=== PATIENT | male | born 1950 | race Caucasian/White ===

== ENCOUNTER 2021-01-01 12:05 | Emergency (ER) | payer MEDICARE, OTHER ==
--- NOTE | 2021-01-01 12:13 | ED GU-Male ---
General Chief Complaint: Abdominal/GI Problems Stated Complaint: LT FLANK/ABD PAIN History of Present Illness Date Seen by Provider: Jan 01, 2021 Time Seen by Provider: 12:12 Initial Comments 70-year-old male presents with left flank pain is been going on for about a week. Now he has some pain in the left lower quadrant/left groin. He denies any urinary symptoms. Denies any fevers chills nausea or vomiting. He has no other systemic complaints. Allergies and Home Medications Allergies Coded Allergies: No Known Drug Allergies (Unverified , 01/01/21) Home Medications Ondansetron 4 Mg Tab.rapdis, 4 MG PO Q6H PRN for NAUSEA/VOMITING Prescribed by: SO DEE on 01/01/21 1310 Tamsulosin HCl 0.4 Mg Cap, 0.4 MG PO DAILY Prescribed by: SO DEE on 01/01/21 1310 Patient Home Medication List Home Medication List Reviewed: Yes Review of Systems Review of Systems Constitutional: No chills, No fever Respiratory: No cough, No short of breath Cardiovascular: no symptoms reported Musculoskeletal: see HPI Psychiatric/Neurological: No Symptoms Reported Endocrine: No Symptoms Reported Hematologic/Lymphatic: No Symptoms Reported Physical Exam Vital Signs Vital Signs - First Documented 01/01/21 12:13 Temp 35.4 Pulse 62 Resp 16 B/P (MAP) 117/104 (108) Pulse Ox 97 Capillary Refill : Height, Weight, BMI Height: '" Weight: lbs. oz. kg; BMI Method: General Appearance: other (Mild discomfort) HEENT: pharynx normal Cardiovascular: normal peripheral pulses, regular rate, rhythm Respiratory: lungs clear, normal breath sounds Gastrointestinal: non tender, soft Back: CVA tenderness (L) Extremities: non-tender, normal inspection Neurologic/Psychiatric: alert, normal mood/affect, oriented x 3 Progress/Results/Core Measures Suspected Sepsis SIRS Temperature: Pulse: Respiratory Rate: Laboratory Tests 01/01/21 12:23: White Blood Count 6.5 Blood Pressure / Mean: Laboratory Tests 01/01/21 12:23: Creatinine 1.12, Platelet Count 142 Results/Orders Lab Results Laboratory Tests Test 01/01/21 12:22 01/01/21 12:23 Range/Units Urine Color YELLOW Urine Clarity CLEAR Urine pH 5.5 5-9 Urine Specific [place] >=1.030 1.016-1.022 Urine Protein NEGATIVE NEGATIVE Urine Glucose (UA) NEGATIVE NEGATIVE Urine Ketones NEGATIVE NEGATIVE Urine Nitrite NEGATIVE NEGATIVE Urine Bilirubin NEGATIVE NEGATIVE Urine Urobilinogen 0.2 < = 1.0 MG/DL Urine Leukocyte Esterase NEGATIVE NEGATIVE Urine RBC (Auto) 2+ H NEGATIVE Urine RBC 50-100 H /HPF Urine WBC NONE /HPF Urine Squamous Epithelial Cells RARE /HPF Urine Crystals NONE /LPF Urine Bacteria FEW H /HPF Urine Casts PRESENT /LPF Urine Hyaline Casts 0-2 H /LPF Urine Mucus LARGE H /LPF Urine Culture Indicated NO White Blood Count 6.5 4.3-11.0 10^3/uL Red Blood Count 5.25 4.35-5.85 10^6/uL Hemoglobin 15.9 13.3-17.7 G/DL Hematocrit 45 40-54 % Mean Corpuscular Volume 87 80-99 FL Mean Corpuscular Hemoglobin 30 25-34 PG Mean Corpuscular Hemoglobin Concent 35 32-36 G/DL Red Cell Distribution Width 13.2 10.0-14.5 % Platelet Count 142 130-400 10^3/uL Mean Platelet Volume 11.7 H 7.4-10.4 FL Immature Granulocyte % (Auto) 1 % Neutrophils (%) (Auto) 57 42-75 % Lymphocytes (%) (Auto) 32 12-44 % Monocytes (%) (Auto) 7 0-12 % Eosinophils (%) (Auto) 4 0-10 % Basophils (%) (Auto) 1 0-10 % Neutrophils # (Auto) 3.7 1.8-7.8 X 10^3 Lymphocytes # (Auto) 2.1 1.0-4.0 X 10^3 Monocytes # (Auto) 0.5 0.0-1.0 X 10^3 Eosinophils # (Auto) 0.2 0.0-0.3 10^3/uL Basophils # (Auto) 0.4 H 0.0-0.1 10^3/uL Immature Granulocyte # (Auto) 0.0 0.0-0.1 10^3/uL Sodium Level 141 135-145 MMOL/L Potassium Level 4.0 3.6-5.0 MMOL/L Chloride Level 104 98-107 MMOL/L Carbon Dioxide Level 28 21-32 MMOL/L Anion Gap 9 5-14 MMOL/L Blood Urea Nitrogen 22 H 7-18 MG/DL Creatinine 1.12 0.60-1.30 MG/DL Estimat Glomerular Filtration Rate > 60 BUN/Creatinine Ratio 20 Glucose Level 103 70-105 MG/DL Calcium Level 9.4 8.5-10.1 MG/DL My Orders Orders - SO DEE DO Basic Metabolic Panel (01/01/21 12:17) Cbc With Automated Diff (01/01/21 12:17) Ua Culture If Indicated (01/01/21 12:17) Ct Abdomen/Pelvis Wo (01/01/21 12:17) Ed Iv/Invasive Line Start (01/01/21 12:17) Ketorolac Injection (Toradol Injection) (01/01/21 12:17) Vital Signs/I&O 01/01/21 01/01/21 12:13 13:19 Temp 35.4 Pulse 62 57 Resp 16 16 B/P (MAP) 117/104 (108) 153/95 Pulse Ox 97 94 Capillary Refill : Progress Note : Progress Note Patient with kidney stone along with bladder stone. Discussed findings with patient. Patient will need to follow-up with his urologist next week. Given tamsulosin along with Zofran. Patient has pain medication at home. Patient stable and discharged home Diagnostic Imaging Diagonstic Imaging: CT Plain Films/CT/US/NM/MRI: abdomen Comments ate of Exam:01/01/21 CT ABDOMEN/PELVIS WO PROCEDURE: CT abdomen and pelvis without contrast. TECHNIQUE: Multiple contiguous axial images were obtained through the abdomen and pelvis without the use of intravenous contrast. Auto Exposure Controls were utilized during the CT exam to meet ALARA standards for radiation dose reduction. INDICATION: Left flank pain, kidney stone. There are no prior studies available for comparison. The images through the low pelvis show that there is a small 3.4 mm calculus at the ureterovesicular junction on the left (129 of 161). The left ureter and left renal pelvis are slightly dilated and most likely there is partial obstruction of the left collecting system due to the aforementioned calculus. There is also a lobulated 1.9 cm calcification in the base of the bladder near the ureterovesical junction on the left. This is probably secondary to a bladder calculus. The bladder itself is not well distended and consequently difficult to assess. There is also a 5.6 and a nonobstructive calculus within the right kidney. In addition along this inferior pole of the right kidney there is a sizable 4.7 cm rounded area of low density. I suspect this is a cyst. There also appear to be several small cysts in the right lobe of the liver. The spleen, pancreas, adrenals, gallbladder, aorta and inferior vena cava show no sign of an acute abnormality. The stomach is partially filled with fluid and difficult to assess. The appendix was visualized and is not abnormally thickened. There is diverticulosis sigmoid colon but there is no sign of acute diverticulitis. The prostate gland is mildly enlarged. The lung bases are generally clear. IMPRESSION: 1. There is partial obstruction left collecting system due to a 3.4 mm calculus at the ureterovesical junction. 2. There also appears to be a 1.9 cm bladder calcification and a 5.6 mm nonobstructive calculus within the right kidney. 3. There is no acute abnormality abdomen and pelvis noted otherwise. Reviewed: Reviewed by Me, Reviewed/Discussed Departure Impression Primary Impression: Calculus of left ureter Disposition: HOME, SELF-CARE Condition: Stable Departure-Patient Inst. Referrals: DEANNA VARGAS MD (PCP/Family) Primary Care Physician Patient Instructions: How to Strain Your Urine, Kidney Stone Diet, Kidney Stones in Adults Add. Discharge Instructions: Call your urologist Sunday morning for follow-up next week Drink plenty of fluid All discharge instructions reviewed with patient and/or family. Voiced understanding. Scripts Tamsulosin HCl (Flomax) 0.4 Mg Cap 0.4 MG PO DAILY, #20 CAP Prov: SO DEE DO 01/01/21 Ondansetron (Ondansetron Odt) 4 Mg Tab.rapdis 4 MG PO Q6H PRN for NAUSEA/VOMITING, #20 TAB 0 Refills Prov: SO DEE DO 01/01/21 SO DEE DO Jan 01, 2021 12:13
[2021-01-01] MEDS ORDERED: KETOROLAC 30 MG/ML VIAL IVP STA (12:17)
[2021-01-01 12:31] LABS: HEMATOCRIT 45 % (40-54); HEMOGLOBIN 15.9 G/DL (13.3-17.7); MEAN CORPUSCULAR HEMOGLOBIN 30 PG (25-34); MEAN CORPUSCULAR VOLUME 87 FL (80-99); WHITE BLOOD COUNT 6.5 10^3/uL (4.3-11.0)
[2021-01-01 12:32] LABS: BASOPHILS # (AUTO) 0.4 10^3/uL (0.0-0.1); BASOPHILS % (AUTO) 1 % (0-10); EOSINOPHILS # (AUTO) 0.2 10^3/uL (0.0-0.3); EOSINOPHILS % (AUTO) 4 % (0-10); LYMPHOCYTES # (AUTO) 2.1 X 10^3 (1.0-4.0); LYMPHOCYTES % (AUTO) 32 % (12-44); MEAN CORPUSCULAR HGB CONC 35 G/DL (32-36); MEAN PLATELET VOLUME 11.7 FL (7.4-10.4); MONOCYTES # (AUTO) 0.5 X 10^3 (0.0-1.0); MONOCYTES % (AUTO) 7 % (0-12); NEUTROPHILS # (AUTO) 3.7 X 10^3 (1.8-7.8); NEUTROPHILS % (AUTO) 57 % (42-75); PLATELET COUNT 142 10^3/uL (130-400)
[2021-01-01 12:33] LABS: BACTERIA,URINE FEW /HPF; BILIRUBIN,URINE NEGATIVE (NEGATIVE); CLARITY,URINE CLEAR; COLOR,URINE YELLOW; GLUCOSE, URINE (UA) NEGATIVE (NEGATIVE); HYALINE CASTS, URINE 0-2 /LPF; KETONES,URINE NEGATIVE (NEGATIVE); LEUKOCYTE ESTERASE ,URINE NEGATIVE (NEGATIVE); NITRITE,URINE NEGATIVE (NEGATIVE); PH,URINE 5.5 (5-9); PROTEIN,URINE NEGATIVE (NEGATIVE); RBC,URINE 50-100 /HPF; SQUAMOUS EPITHELIAL CELL,UR RARE /HPF
[2021-01-01 12:49] LABS: BUN/CREATININE RATIO 20; CALCIUM 9.4 MG/DL (8.5-10.1); CARBON DIOXIDE 28 MMOL/L (21-32); CHLORIDE 104 MMOL/L (98-107); CREATININE SERUM 1.12 MG/DL (0.60-1.30); GFR ESTIMATED > 60; GLUCOSE 103 MG/DL (70-105); SODIUM 141 MMOL/L (135-145)
[2021-01-01] MEDS ORDERED: TMSL.4C PO (13:10)
[2021-01-01] MEDS ORDERED: ONDA4TAB11 PO (13:10)
[2021-01-01 13:19] VITALS: BP 153/95
--- NOTE | 2021-01-01 13:29 | Diagnostic Imaging Report ---
PROCEDURE: CT abdomen and pelvis without contrast. TECHNIQUE: Multiple contiguous axial images were obtained through the abdomen and pelvis without the use of intravenous contrast. Auto Exposure Controls were utilized during the CT exam to meet ALARA standards for radiation dose reduction. INDICATION: Left flank pain, kidney stone. There are no prior studies available for comparison. The images through the low pelvis show that there is a small 3.4 mm calculus at the ureterovesicular junction on the left (129 of 161). The left ureter and left renal pelvis are slightly dilated and most likely there is partial obstruction of the left collecting system due to the aforementioned calculus. There is also a lobulated 1.9 cm calcification in the base of the bladder near the ureterovesical junction on the left. This is probably secondary to a bladder calculus. The bladder itself is not well distended and consequently difficult to assess. There is also a 5.6 and a nonobstructive calculus within the right kidney. In addition along this inferior pole of the right kidney there is a sizable 4.7 cm rounded area of low density. I suspect this is a cyst. There also appear to be several small cysts in the right lobe of the liver. The spleen, pancreas, adrenals, gallbladder, aorta and inferior vena cava show no sign of an acute abnormality. The stomach is partially filled with fluid and difficult to assess. The appendix was visualized and is not abnormally thickened. There is diverticulosis sigmoid colon but there is no sign of acute diverticulitis. The prostate gland is mildly enlarged. The lung bases are generally clear. IMPRESSION: 1. There is partial obstruction of the left collecting system due to a 3.4 mm calculus at the ureterovesical junction. 2. There also appears to be a 1.9 cm bladder calcification and a 5.6 mm nonobstructive calculus within the right kidney. 3. There is no acute abnormality abdomen and pelvis noted otherwise. Dictated by: Dictated on workstation # [id number]
== END 2021-01-01 13:19 | disposition home or self-care (01) ==
LOC: ER FS 12:08
DX: N20.1 Calculus of ureter (principal); N20.0 Calculus of kidney
CPT/HCPCS: 36415; 74176; 80048; 81000; 85025

== ENCOUNTER 2021-05-03 18:37 | Emergency (ER) | payer MEDICARE, OTHER ==
[~2021-05-03] VITALS: Ht 187.9 cm; Wt 101.4 kg
[~2021-05-03 18:37] MED LIST: ONDA4TAB11 PO; TMSL.4C PO
[2021-05-03] MEDS ORDERED: ONDANSETRON 4 MG/2 ML (SDV) Z0FRAN IVP ONE ×2 (19:00→21:15)
[2021-05-03] MEDS ORDERED: fentaNYL INJ 100 MCG/2 ML AMP IVP ONE (19:00)
[2021-05-03] MEDS ORDERED: NS IV 1000 ML 1,000 ML IV SCH (19:00)
--- NOTE | 2021-05-03 19:15 | Diagnostic Imaging Report ---
PROCEDURE: CT abdomen and pelvis without contrast. TECHNIQUE: Multiple contiguous axial images were obtained through the abdomen and pelvis without the use of intravenous contrast. Auto Exposure Controls were utilized during the CT exam to meet ALARA standards for radiation dose reduction. INDICATION: Right flank pain. Patient has history of kidney stones. COMPARISON: Correlation is made with prior CT from 01/01/2021. FINDINGS: Lung bases are clear. Low-attenuation lesions in the right lobe of the liver are stable and suggestive of cysts. Gallbladder is unremarkable. There is no biliary ductal dilatation. The pancreas and spleen are unremarkable. No adrenal mass is detected. Left kidney is unremarkable. Right kidney contains a 5.3 cm low-attenuation lesion in the lower pole, most suggestive of a cyst. This measured 4.7 cm on prior exam. Previously noted intrarenal calculus on the right now appears to be located in the proximal right ureter. This measures 7 mm in size and is producing moderate hydroureteronephrosis. No other ureteral calculi are seen. The large bladder calculus previously described remains in place. Prostate is enlarged. Aorta is calcified and tortuous but nonaneurysmal. Bowel loops are nonobstructed. There is diverticulosis of the sigmoid but no evidence of acute diverticulitis. There is no free fluid or fluid collection. There are fat-containing inguinal hernias bilaterally. IMPRESSION: 1. Hepatic and renal cysts. 2. Proximal right ureteric calculus producing moderate hydroureteronephrosis. 3. Bladder calculus. 4. Prostatomegaly. 5. Fat-containing inguinal hernias. Dictated by: Dictated on workstation # [id number]
[2021-05-03 19:27] LABS: HEMATOCRIT 43 % (40-54); HEMOGLOBIN 14.3 g/dL (13.3-17.7); MEAN CORPUSCULAR HEMOGLOBIN 29 pg (25-34); MEAN CORPUSCULAR HGB CONC 34 g/dL (32-36); MEAN CORPUSCULAR VOLUME 85 fL (80-99); MEAN PLATELET VOLUME 11.2 fL (9.0-12.2); PLATELET COUNT 163 10^3/uL (130-400); WHITE BLOOD COUNT 10.7 10^3/uL (4.3-11.0)
[2021-05-03 19:28] LABS: BASOPHILS % (AUTO) 0 % (0-10); EOSINOPHILS # (AUTO) 0.1 10^3/uL (0.0-0.3); EOSINOPHILS % (AUTO) 1 % (0-10); LYMPHOCYTES # (AUTO) 1.2 X 10^3 (1.0-4.0); LYMPHOCYTES % (AUTO) 11 % (12-44); MONOCYTES # (AUTO) 0.8 X 10^3 (0.0-1.0); MONOCYTES % (AUTO) 8 % (0-12); NEUTROPHILS # (AUTO) 8.6 X 10^3 (1.8-7.8); NEUTROPHILS % (AUTO) 80 % (42-75)
[2021-05-03 19:29] LABS: ALBUMIN 3.7 GM/DL (3.2-4.5); BILIRUBIN,TOTAL 0.6 MG/DL (0.1-1.0); CALCIUM 9.5 MG/DL (8.5-10.1); CREATININE SERUM 1.55 MG/DL (0.60-1.30); POTASSIUM 4.1 MMOL/L (3.6-5.0); TOTAL PROTEIN 7.3 GM/DL (6.4-8.2)
[2021-05-03 19:58] LABS: BACTERIA,URINE NEGATIVE /HPF; BILIRUBIN,URINE NEGATIVE (NEGATIVE); CLARITY,URINE SL CLOUDY; COLOR,URINE DARK YELLOW; GLUCOSE, URINE (UA) NEGATIVE (NEGATIVE); KETONES,URINE 1+ (NEGATIVE); LEUKOCYTE ESTERASE ,URINE NEGATIVE (NEGATIVE); NITRITE,URINE NEGATIVE (NEGATIVE); PH,URINE 5.5 (5-9); PROTEIN,URINE 1+ (NEGATIVE); RBC,URINE 25-50 /HPF
--- NOTE | 2021-05-03 21:03 | ED Abdominal Pain ---
General Chief Complaint: Abdominal/GI Problems Stated Complaint: LOWER BACK/ABD PAIN Nursing Triage Note: Patient stated that he was diagnosed with kidney stones several years ago. He states it was recommended that he have surgery and he declined. Patient is complaining of bilateral flank pain that radiates to his abdomen. Patient states that he does have some slight nausea. Source of Information: Patient, Family History of Present Illness Date Seen by Provider: May 03, 2021 Time Seen by Provider: 19:30 Initial Comments Patient is a 70-year-old male with history of renal stones who presents with intermittent right flank pain x3 days pain is described as dull radiating and moderate to severe. Is associate with nausea without vomiting. No fever chills or sweats. No urinary frequency urgency dysuria. No other acute symptoms or co mplaints. No medications or therapies prior to ED arrival Timing/Duration: 3-4 Days Severity/Quality: Other Location: Other Radiation: Other Activities at Onset: Other Modifying Factors: Improves With Other Associated Symptoms: Other Allergies and Home Medications Allergies Coded Allergies: No Known Drug Allergies (Unverified , 01/01/21) Patient Home Medication List Home Medication List Reviewed: Yes Ondansetron (Ondansetron Odt) 4 Mg Tab.rapdis, 4 MG PO Q6H PRN for NAUSEA/VOMITING Prescribed by: SO DEE on 01/01/21 1310 Tamsulosin HCl (Flomax) 0.4 Mg Cap, 0.4 MG PO DAILY Prescribed by: SO DEE on 01/01/21 1310 Review of Systems Review of Systems Constitutional: see HPI EENTM: See HPI Respiratory: See HPI Gastrointestinal: See HPI Genitourinary: See HPI Musculoskeletal: see HPI Skin: see HPI Psychiatric/Neurological: See HPI Endocrine: See HPI Hematologic/Lymphatic: See HPI All Other Systems Reviewed Negative Unless Noted: Yes Past Ylhfyre-Dwducm-Djjnai Hx Patient Social History Tobacco Use?: Yes Use of E-Cig and/or Vaping dev: No Substance use?: No Alcohol Use?: No Immunizations Up To Date COVID19 Vaccine [employer] Developer: [employer] Past Medical History Surgery/Hospitalization HX: Kidney Stones Physical Exam Vital Signs Vital Signs - First Documented 05/03/21 18:42 Temp 36.1 Pulse 75 Resp 14 B/P (MAP) 156/91 (112) Pulse Ox 94 O2 Delivery Room Air Capillary Refill : Less Than 3 Seconds Height/Weight/BMI Height: '" Weight: lbs. oz. kg; 28.00 BMI Method: General Appearance: moderate distress HEENT: PERRL/EOMI, normal ENT inspection Neck: non-tender, full range of motion, supple Respiratory: lungs clear Cardiovascular: normal peripheral pulses, regular rate, rhythm Gastrointestinal: non tender, soft Extremities: normal range of motion, non-tender, no calf tenderness Neurologic/Psychiatric: curbing stonecutter II-XII nml as tested, no motor/sensory deficits, alert, normal mood/affect, oriented x 3 Focused Exam Sepsis Stage: Ruled Out Progress/Results/Core Measures Results/Orders Lab Results Laboratory Tests Test 05/03/21 18:53 05/03/21 19:44 Range/Units White Blood Count 10.7 4.3-11.0 10^3/uL Red Blood Count 5.01 4.30-5.52 10^6/uL Hemoglobin 14.3 13.3-17.7 g/dL Hematocrit 43 40-54 % Mean Corpuscular Volume 85 80-99 fL Mean Corpuscular Hemoglobin 29 25-34 pg Mean Corpuscular Hemoglobin Concent 34 32-36 g/dL Red Cell Distribution Width 13.2 10.0-14.5 % Platelet Count 163 130-400 10^3/uL Mean Platelet Volume 11.2 9.0-12.2 fL Immature Granulocyte % (Auto) 0 % Neutrophils (%) (Auto) 80 H 42-75 % Lymphocytes (%) (Auto) 11 L 12-44 % Monocytes (%) (Auto) 8 0-12 % Eosinophils (%) (Auto) 1 0-10 % Basophils (%) (Auto) 0 0-10 % Neutrophils # (Auto) 8.6 H 1.8-7.8 X 10^3 Lymphocytes # (Auto) 1.2 1.0-4.0 X 10^3 Monocytes # (Auto) 0.8 0.0-1.0 X 10^3 Eosinophils # (Auto) 0.1 0.0-0.3 10^3/uL Basophils # (Auto) 0.0 0.0-0.1 10^3/uL Immature Granulocyte # (Auto) 0.0 0.0-0.1 10^3/uL Sodium Level 137 135-145 MMOL/L Potassium Level 4.1 3.6-5.0 MMOL/L Chloride Level 102 98-107 MMOL/L Carbon Dioxide Level 23 21-32 MMOL/L Anion Gap 12 5-14 MMOL/L Blood Urea Nitrogen 25 H 7-18 MG/DL Creatinine 1.55 H 0.60-1.30 MG/DL Estimat Glomerular Filtration Rate 44 BUN/Creatinine Ratio 16 Glucose Level 168 H 70-105 MG/DL Calcium Level 9.5 8.5-10.1 MG/DL Corrected Calcium 9.7 8.5-10.1 MG/DL Total Bilirubin 0.6 0.1-1.0 MG/DL Aspartate Amino Transf (AST/SGOT) 15 5-34 U/L Alanine Aminotransferase (ALT/SGPT) 9 0-55 U/L Alkaline Phosphatase 68 40-136 U/L Total Protein 7.3 6.4-8.2 GM/DL Albumin 3.7 3.2-4.5 GM/DL Urine Color DARK YELLOW Urine Clarity SL CLOUDY Urine pH 5.5 5-9 Urine Specific [place] >=1.030 1.016-1.022 Urine Protein 1+ H NEGATIVE Urine Glucose (UA) NEGATIVE NEGATIVE Urine Ketones 1+ H NEGATIVE Urine Nitrite NEGATIVE NEGATIVE Urine Bilirubin NEGATIVE NEGATIVE Urine Urobilinogen 0.2 < = 1.0 MG/DL Urine Leukocyte Esterase NEGATIVE NEGATIVE Urine RBC (Auto) 1+ H NEGATIVE Urine RBC 25-50 H /HPF Urine WBC 2-5 /HPF Urine Squamous Epithelial Cells 2-5 /HPF Urine Crystals NONE /LPF Urine Bacteria NEGATIVE /HPF Urine Casts NONE /LPF Urine Mucus MODERATE H /LPF Urine Culture Indicated NO My Orders Orders - LOREN SNOW DO Cbc With Automated Diff (05/03/21 18:53) Comprehensive Metabolic Panel (05/03/21 18:53) Urinalysis (05/03/21 18:53) Ct Abdomen/Pelvis Wo (05/03/21 18:53) Fentanyl Inj (Sublimaze Injection) (05/03/21 19:00) Ondansetron Injection (Zofran Injectio (05/03/21 19:00) Ns Iv 1000 Ml (Sodium Chloride 0.9%) (05/03/21 19:00) Ed Iv/Invasive Line Start (05/03/21 19:40) Medications Given in ED Current Medications Medications Dose Ordered Sig/Iris Route Start Time Stop Time Status Last Admin Dose Admin Fentanyl Citrate 50 mcg ONCE ONCE IVP 05/03/21 19:00 05/03/21 19:01 DC 05/03/21 19:25 50 MCG Ondansetron HCl 4 mg ONCE ONCE IVP 05/03/21 19:00 05/03/21 19:01 DC 05/03/21 19:25 4 MG Vital Signs/I&O 05/03/21 18:42 Temp 36.1 Pulse 75 Resp 14 B/P (MAP) 156/91 (112) Pulse Ox 94 O2 Delivery Room Air Blood Pressure Mean: 112 Departure Communication (Admissions) CT abdomen pelvis: Right proximal ureteral stone with moderate hydronephrosis. Pain improvement treatment. Patient instructed to follow-up with his urologist tomorrow to arrange for outpatient lithotripsy. Return cautions reviewed. Patient verbalizes understanding agreement with discharge instructions prior to departure Impression Primary Impression: Acute right flank pain Additional Impression: Ureteral stone Disposition: HOME, SELF-CARE Condition: Stable Departure-Patient Inst. Decision time for Depature: 21:04 Referrals: DEANNA VARGAS MD (PCP) Primary Care Physician KATHLEEN JAY MD Patient Instructions: Flank Pain, Kidney Stones in Adults Add. Discharge Instructions: You were evaluated in the emergency department for flank pain. CT scan shows a 7 mm proximal right ureteral stone causing moderate right kidney urine retention. Please take pain and nausea medications as directed and contact your urologist in the morning to schedule outpatient lithotripsy. You may also call Dr. Jay on-call for urology for [facility]. If you develop new or worsening symptoms, return to the ED. All discharge instructions reviewed with patient and/or family. Voiced understanding. Scripts Ondansetron (Ondansetron Odt) 4 Mg Tab.rapdis 4 MG PO q6, #10 TAB Prov: LOREN SNOW DO 05/03/21 Oxycodone HCl/Acetaminophen (Percocet 5-325 mg Tablet) 1 Each Tablet 1 TAB PO Q4H for PAIN-MODERATE MDD 6 TABS for 7 Days, #14 TAB Prov: LOREN SNOW DO 05/03/21 LOREN SNOW DO May 03, 2021 21:03
[2021-05-03] MEDS ORDERED: ONDA4TAB11 PO (21:08)
[2021-05-03] MEDS ORDERED: OXYC1TAB87 PO (21:08)
[2021-05-03] MEDS ORDERED: morphine INJ 10 MG/ML 1ML (SYR OR VIAL) IVP STA (21:11)
[2021-05-03] MEDS ORDERED: KETOROLAC 30 MG/ML VIAL IVP ONE (21:15)
[2021-05-03 21:27] VITALS: BP 127/77
== END 2021-05-03 21:27 | disposition home or self-care (01) ==
LOC: EDUNIT# 18:37 → ER FS 18:38
DX: N13.2 Hydronephrosis with renal and ureteral calculous obstruction (principal); Z72.0 Tobacco use
CPT/HCPCS: 36415; 74176; 80053; 81000; 85025

== ENCOUNTER → 2021-05-09 | Outpatient (CLI) | payer MEDICARE, OTHER ==
[~2021-05-09] MED LIST changes: +ASPI-808 PO; +ATOR20TA66 PO; +BISO10TA6 PO; +DUTA0.5C36 PO; +GLIM4TAB5 PO; +ISOS30TA82 PO; +KETO10TA PO; +LISI20TA26 PO; +METF-399 PO; +MULTI VITAMIN PO; +OMEGA 3 PO; +OXYC1TAB87 PO; +PHEN-640 PO; +SULF1TAB38 PO; +VITAMIN C PO
--- NOTE | 2021-05-09 14:01 | Diagnostic Imaging Report ---
INDICATION: Followup calculi. COMPARISON: CT of the abdomen dated 05/03/2021. FINDINGS: Two supine radiographic views of the abdomen were obtained and demonstrate nondistended loops of small bowel. There is no large collection of free peritoneal air. Moderate air and stool are seen scattered throughout the colon. A star-shaped extraosseous calcification is identified overlying the lower right hemipelvis and is felt to correspond to the large bladder calculus seen on the prior CT. No other unexpected extraosseous calcifications or radiopaque foreign bodies are identified. Bony structures show no gross acute abnormalities. IMPRESSION: 1. Redemonstration of a large bladder calculus.. 2. Moderate colonic air and stool. Please correlate for constipation. 3. Nonobstructed small bowel gas pattern. Dictated by: Dictated on workstation # [id number]
== END ==
LOC: RAD 12:33
PROVIDERS: ATTEND Urology
DX: N21.0 Calculus in bladder (principal); N20.1 Calculus of ureter
CPT/HCPCS: 74018

== ENCOUNTER 2021-05-10 06:09 | Outpatient (CLI) | payer MEDICARE, OTHER ==
[~2021-05-10] VITALS: Ht 188 cm; Wt 100.0 kg
[~2021-05-10 06:09] MED LIST changes: -ASPI-808 PO; -ATOR20TA66 PO; -BISO10TA6 PO; -DUTA0.5C36 PO; -GLIM4TAB5 PO; -ISOS30TA82 PO; -KETO10TA PO; -LISI20TA26 PO; -METF-399 PO; -MULTI VITAMIN PO; -OMEGA 3 PO; -PHEN-640 PO; -SULF1TAB38 PO; -VITAMIN C PO
[2021-05-10] MEDS ORDERED: BISO10TA6 PO (13:00)
[2021-05-10] MEDS ORDERED: ISOS30TA82 PO (13:00)
[2021-05-10] MEDS ORDERED: GLIM4TAB5 PO (13:00)
[2021-05-10] MEDS ORDERED: ATOR20TA66 PO (13:00)
[2021-05-10] MEDS ORDERED: LISI20TA26 PO (13:00)
[2021-05-10] MEDS ORDERED: METF-399 PO (13:00)
[2021-05-10] MEDS ORDERED: DUTA0.5C36 PO (13:00)
[2021-05-10] MEDS ORDERED: OMEGA 3 PO (13:02)
[2021-05-10] MEDS ORDERED: MULTI VITAMIN PO (13:02)
[2021-05-10] MEDS ORDERED: VITAMIN C PO (13:02)
[2021-05-10] MEDS ORDERED: ASPI-808 PO (13:02)
[2021-05-11] MEDS ORDERED: PHEN-640 PO (10:38)
[2021-05-11] MEDS ORDERED: KETO10TA PO (10:38)
[2021-05-11] MEDS ORDERED: SULF1TAB38 PO (10:38)
== END 2021-05-10 13:24 | disposition home or self-care (01) ==
LOC: PREOP 06:09
PROVIDERS: ATTEND Urology
DX: Z01.818 Encounter for other preprocedural examination (principal)

== ENCOUNTER 2021-05-11 07:00 | Day surgery (SDC) | payer MEDICARE, OTHER ==
[2021-05-11] VITALS (11 sets, daily range): BP systolic 132–166; BP diastolic 82–102
[~2021-05-11] VITALS: Ht 188 cm; Wt 100.0 kg
[~2021-05-11 07:00] MED LIST changes: +ASPI-808 PO; +ATOR20TA66 PO; +BISO10TA6 PO; +DUTA0.5C36 PO; +GLIM4TAB5 PO; +ISOS30TA82 PO; +LISI20TA26 PO; +METF-399 PO; +MULTI VITAMIN PO; +OMEGA 3 PO; +VITAMIN C PO
[2021-05-11] MEDS ORDERED: cefTRIAXone 1,000 MG in SYRINGE-IVPB 0 SYRINGE IV ONE (07:15)
--- NOTE | 2021-05-11 07:23 | Progress Note-Pre Operative ---
Pre-Operative Progress Note H&P Reviewed The H&P was reviewed, patient examined and no changes noted. Date Seen by Provider: May 11, 2021 Time Seen by Provider: 07:22 Date H&P Reviewed: May 11, 2021 Time H&P Reviewed: 07:22 Pre-Operative Diagnosis: RT URETERAL AND BLADDER STONES KATHLEEN JAY MD May 11, 2021 07:23
[2021-05-11] MEDS ORDERED: cefTRIAXone 1 GM IV (PRE-MIX) 50 ML IV ONE (07:30)
--- NOTE | 2021-05-11 07:31 | Progress Note-Post Operative ---
Post-Operative Progess Note Surgeon (s)/Sales Intern (s) Surgeon KATHLEEN JAY MD Sales Intern: NONE Pre-Operative Diagnosis RT URETERAL AND BLADDER STONES Post-Operative Diagnosis SAME Procedure & Operative Findings Date of Procedure 05/11/21 Procedure Performed/Findings CYSTOSCOPY, RT URETERAL STONE MANIPULATION, ATTEMPTED STENT, ATTEMPTED URETEROSC OPY, AND RETROGRADE UROGRAM Anesthesia Type GENERAL Estimated Blood Loss Estimated blood loss (mL): LESS THAN 50CC Specimens/Packing Specimens Removed NONE Packing: NONE KATHLEEN JAY MD May 11, 2021 07:31
--- NOTE | 2021-05-11 07:33 | Discharge Inst-Urology ---
Discharge Inst-Urology Reconcile Patient Problems Problems Reviewed?: Yes Final Diagnosis RT URETERAL AND BLADDER STONES Patient Instructions/Follow Up Plan/Assessment/Instructions Please make appointment to been seen in office Wednesday 05/23, KUB prior to it KUB on way home STAY OFF ASA Increase oral fluids for 48 hours and then as needed. Diet and Activity as tolerated. If questions or concerns contact your physician Or seek help at emergency department. KATHLEEN JAY MD May 11, 2021 07:33
--- NOTE | 2021-05-11 07:39 | Diagnostic Imaging Report ---
Indication: Kidney stone. Comparison with 05/09/2021. FINDINGS: There continues to be a large faceted bladder stone. No calculi are seen overlying the renal shadows or the ureters. Bowel gas pattern is normal. Diffuse degenerative changes of the lumbosacral spine. IMPRESSION: Bladder stone remains present without significant change in appearance. Dictated by: Dictated on workstation # [id number]
[2021-05-11] MEDS: LACTATED RINGERS 1,000 ML IV PRN ×2 (07:40→09:50)
[2021-05-11] MEDS ORDERED: LIDOCAINE PF 2% 5 ML (XYLOCAINE) VIAL ONE (08:28)
[2021-05-11] MEDS ORDERED: ROCURONIUM 10 MG/ML 5 ML SYRINGE IV ONE (08:28)
[2021-05-11] MEDS ORDERED: NEOSTIGMINE 3 MG/3 ML VIAL ONE (08:28)
[2021-05-11] MEDS ORDERED: ONDANSETRON 4 MG/2 ML (SDV) Z0FRAN ONE (08:28)
[2021-05-11] MEDS ORDERED: fentaNYL INJ 100 MCG/2 ML AMP ONE (08:28)
[2021-05-11] MEDS ORDERED: proPOfol 200 MG/20 ML (DIPRIVAN) VIAL IV ONE (08:28)
[2021-05-11] MEDS ORDERED: GLYCOPYRROLATE 0.2 MG/ML (ROBINUL) 2 ML VIAL ONE (08:28)
[2021-05-11] MEDS ORDERED: IOHEXOL 300 MG/ML 30 ML (OMNIPAQUE 300) VIAL INJ ONE (09:45)
[2021-05-11] MEDS ORDERED: SEVOFLURANE (ULTANE) 15 ML INHAL SOLN ONE (10:06)
[2021-05-11] MEDS ORDERED: ONDANSETRON 4 MG/2 ML (SDV) Z0FRAN IVP PRN (10:30)
[2021-05-11] MEDS ORDERED: morphine INJ 10 MG/ML 1ML (SYR OR VIAL) IVP ONE (10:30)
[2021-05-11] MEDS ORDERED: PHEN-640 PO ×2 (10:38)
[2021-05-11] MEDS ORDERED: KETO10TA PO ×2 (10:38)
[2021-05-11] MEDS ORDERED: SULF1TAB38 PO ×2 (10:38)
[2021-05-11] MEDS ORDERED: oxyCODONE/APAP 5/325MG (PERCOCET 5) TABLET PO ONE (12:15)
[2021-05-11] MEDS ORDERED: oxyCODONE/APAP 5/325MG (PERCOCET 5) TABLET ONE (12:16)
--- NOTE | 2021-05-11 12:23 | Anesthesia-General Post-Op ---
General Patient Condition Mental Status/LOC: Same as Preop Cardiovascular: Satisfactory Nausea/Vomiting: Absent Respiratory: Satisfactory Pain: Controlled Complications: Absent Post Op Complications Complications None Follow Up Care/Instructions Patient Instructions None needed. Anesthesia/Patient Condition Patient Condition Patient is doing well, no complaints, stable vital signs, no apparent adverse anesthesia problems. ELIANE LYONS DO May 11, 2021 12:23
--- NOTE | 2021-05-11 12:51 | Diagnostic Imaging Report ---
INDICATION: Post cystoscopy. TIME OF EXAM: 12:48 p.m. COMPARISON: Correlation is made with prior study earlier same day. FINDINGS: Irregular calculus in the midline pelvis is noted consistent with known bladder calculus. There is also small calcific density projected just lateral to the right transverse process of L2 consistent with known ureteral calculus. This does appear to be slightly more proximal than earlier today. Left-sided urinary tracts are unremarkable. IMPRESSION: Bladder and right ureteral calculus, as described. Dictated by: Dictated on workstation # [id number]
--- NOTE | 2021-05-11 23:49 | OPERATIVE REPORT ---
DATE OF SERVICE: 05/11/2021 PREOPERATIVE DIAGNOSES: 1. Right proximal ureteral stone. 2. Bladder stone. 3. Benign prostatic hypertrophy. POSTOPERATIVE DIAGNOSES: 1. Right proximal ureteral stone. 2. Bladder stone. 3. Benign prostatic hypertrophy. OPERATIONS PERFORMED: Cystoscopy, right ureteral stone manipulation, attempted insertion of stent, attempted ureteroscopy and retrograde urogram. SURGEON: Dc Jay MD. ANESTHESIA: General. COMPLICATIONS: None. DESCRIPTION OF PROCEDURE: Under satisfactory general anesthesia, the patient in lithotomy position, the genitalia were prepped and draped in the usual sterile fashion. Cystoscope was introduced under vision. Anterior urethra was normal. The prostate was enlarged with a median bar causing bladder neck obstruction. The bladder was entered and revealed trabeculations and a spikey looking good size stone in the bladder. Ureteric orifice was normal, but sluggish efflux on the right side. Using the foroblique lens, I first passed a 5-Nauruan whistle tip ureteral catheter, met resistance past the intramural portion, so I inserted a spiral tip catheter. I was able to pass it all the way up to the stone, I could not bypass or push the stone; however, I was able to flush it back with saline and see it going back to the right renal pelvis. I removed the ureteral catheter. I attempted to pass a 6-Nauruan 28 cm double-J stent, was held in the distal portion of the ureter, so I removed it, reinserted ureteral catheter, injected contrast. There was a fishhook deformity of the ureter to what I could not bypass and tortuosity of the ureter all the way up to the renal pelvis. I attempted to pass a sensor guidewire, but was unsuccessful. I attempted to pass a Glidewire, unsuccessful, so I tried to do ureteroscopy to see if I could see the lumen and pass the wire under vision. I could not manipulate it beyond the intramural portion. I discontinued further attempt since the obstruction was relieved and because the patient is on aspirin and only, we stopped it a day or two ago, I did not want to do anything to the bladder stone, which is a chronic situation and can be done later, so I discontinued further attempt. I emptied the bladder, removed the cystoscope, inserted a Rosen catheter to observe the color of the urine postoperatively and decide on DC it or sending the patient with the catheter. The patient tolerated the procedure and anesthesia well and was sent to recovery room in a stable condition. PLAN: I explained to the in details, stone hopefully was made in the kidney and we could see him back at the office on 05/23/2021, set him up with ESWL on the 05/24/2021 and he is to stay off the aspirin for now. If he developed any problem, depending on how close to the 24 of May, we will give symptomatic relief like he did with stone since the 05/03/2021. If needed any intervention, they will go to the [facility]. I will probably send him to where they have flexible ureteroscopy and all kind of gadgets. We could not afford having all of them. This was fully explained to the patient and his . Job ID: [id number] DocumentID: [id number] Dictated Date: 05/11/2021 10:41:26 Shear Tender Date: 05/11/2021 16:49:09 Dictated By: DC JAY MD MTDD
== END 2021-05-11 12:47 | disposition home or self-care (01) ==
LOC: SDC 07:00
PROVIDERS: ATTEND Urology
DX: N20.1 Calculus of ureter (principal); N21.0 Calculus in bladder; N40.0 Benign prostatic hyperplasia without lower urinary tract symptoms; I10 Essential (primary) hypertension; I25.110 Atherosclerotic heart disease of native coronary artery with unstable angina pectoris; J45.909 Unspecified asthma, uncomplicated; E11.9 Type 2 diabetes mellitus without complications; E78.5 Hyperlipidemia, unspecified; Z79.82 Long term (current) use of aspirin; Z79.899 Other long term (current) drug therapy; Z79.84 Long term (current) use of oral hypoglycemic drugs
CPT/HCPCS: 74018; 76000; 82947; 87081

== ENCOUNTER 2021-05-12 00:50 | Emergency (ER) | payer MEDICARE, OTHER ==
[~2021-05-12] VITALS: Ht 187.9 cm; Wt 100.0 kg
[~2021-05-12 00:50] MED LIST changes: +KETO10TA PO; +PHEN-640 PO; +SULF1TAB38 PO
--- NOTE | 2021-05-12 01:37 | ED GU-Male ---
General Chief Complaint: - Reproductive Stated Complaint: URINARY PROBLEM Source: patient History of Present Illness Date Seen by Provider: May 12, 2021 Time Seen by Provider: 00:53 Initial Comments 70-year-old male presenting with difficulty urinating. He was having increasing lower abdominal pressure and pain. He had seen Dr. Richrads earlier during the day for procedure. He had they had tried to remove the bladder stone as well as a right-sided ureteral kidney stone. He had still been taking aspirin so they were unable to do any ultrasound or lithotripsy. After patient was discharged he was on an antibiotic. However tonight he was having no success when he was trying to urinate. He will occasionally have some dribbling of urine but was having increasing pressure and pain. Allergies and Home Medications Allergies Coded Allergies: No Known Drug Allergies (Unverified , 05/10/21) Patient Home Medication List Home Medication List Reviewed: Yes Atorvastatin Calcium (Atorvastatin Calcium) 20 Mg Tablet, 20 MG PO DAILY, (Reported) Entered as Reported by: SUZANNA PATEL on 05/10/21 1300 Bisoprolol Fumarate (Bisoprolol Fumarate) 10 Mg Tablet, 10 MG PO BID, (Reported) Entered as Reported by: SUZANNA PATEL on 05/10/21 1300 Dutasteride (Dutasteride) 0.5 Mg Capsule, 0.5 MG PO DAILY, (Reported) Entered as Reported by: SUZANNA PATEL on 05/10/21 1300 Glimepiride (Glimepiride) 4 Mg Tablet, 4 MG PO DAILY, (Reported) Entered as Reported by: SUZANNA PATEL on 05/10/21 1300 Isosorbide Mononitrate (Isosorbide Mononitrate ER) 30 Mg Tab.er.24h, 30 MG PO DAILY, (Reported) Entered as Reported by: SUZANNA PATEL on 05/10/21 1300 Ketorolac Tromethamine (Ketorolac Tromethamine) 10 Mg Tablet, 10 MG PO Q6H Prescribed by: JULIA MATOS on 05/11/21 1038 Lisinopril (Lisinopril) 20 Mg Tablet, 20 MG PO BID, (Reported) Entered as Reported by: SUZANNA PATEL on 05/10/21 1300 Metformin HCl (Metformin HCl) 1,000 Mg Tablet, 1,000 MG PO BID, (Reported) Entered as Reported by: SUZANNA PATEL on 05/10/21 1300 Ondansetron (Ondansetron Odt) 4 Mg Tab.rapdis, 4 MG PO q6 Prescribed by: LOREN SNOW on 05/03/212107 Oxycodone HCl/Acetaminophen (Percocet 5-325 mg Tablet) 1 Each Tablet, 1 TAB PO Q4H Prescribed by: LOREN SNOW on 05/03/212107 Phenazopyridine HCl (Pyridium) 200 Mg Tablet, 1 TAB PO TID Prescribed by: JULIA MATOS on 05/11/21 1038 Sulfamethoxazole/Trimethoprim (Bactrim Ds Tablet) 1 Each Tablet, 1 EACH PO BID Prescribed by: JULIA MATOS on 05/11/21 1038 Tamsulosin HCl (Flomax) 0.4 Mg Cap, 0.4 MG PO DAILY Prescribed by: SO DEE on 01/01/21 1310 [Multi Vitamin] , 1 PO DAILY, (Reported) Entered as Reported by: SUZANNA PATEL on 05/10/21 130 [Sondheimer 3] , 1 EA PO DAILY, (Reported) Entered as Reported by: SUZANNA PATEL on 05/10/21 130 [Vitamin C] , 1 EA PO DAILY, (Reported) Entered as Reported by: SUZANNA PATEL on 05/10/21 130 Discontinued Medications Aspirin (Aspirin) 325 Mg Tablet, PO DAILY, (Reported) Entered as Reported by: SUZANNA PATEL on 05/10/21 1302 Ondansetron (Ondansetron Odt) 4 Mg Tab.rapdis, 4 MG PO Q6H PRN for NAUSEA/VOMITING Discontinued Reason: No Longer Taking Prescribed by: SO DEE on 01/01/21 1310 Review of Systems Review of Systems Constitutional: No chills, No fever EENTM: no symptoms reported Respiratory: no symptoms reported Cardiovascular: no symptoms reported Gastrointestinal: no symptoms reported Genitourinary: see HPI Musculoskeletal: no symptoms reported Skin: no symptoms reported Psychiatric/Neurological: No Symptoms Reported Past Kvwpvia-Vaywab-Rnjbnl Hx Patient Social History Tobacco Use?: Yes Smokeless Tobacco Frequency: Current Everyday User Substance use?: No Alcohol Use?: No Pt feels they are or have been: No Immunizations Up To Date Tetanus Booster (TDap): Unknown Influenza Vaccine Up-to-Date: No; Not Current First/Initial COVID19 Vaccinat: JULY 2020 Second COVID19 Vaccination Michel: AUGUST 2020 Third COVID19 Vaccination Date: MODERN Seasonal Allergies Seasonal Allergies: No Past Medical History Surgery/Hospitalization HX: Kidney Stones Respiratory: Yes Asthma Currently Using CPAP: No Currently Using BIPAP: No Cardiac: Yes (HEART ATTACK X5) Heart Attack, High Cholesterol, Hypertension Neurological: No Sexually Transmitted Disease: No HIV/AIDS: No Genitourinary: Yes (PRIOR STONES) Kidney Stones Gastrointestinal: Yes (HERNIAS ) Musculoskeletal: Yes Arthritis Endocrine: Yes Diabetes, Non-Insulin dep HEENT: Yes Cancer: No Psychosocial: No Integumentary: No Blood Disorders: No Physical Exam Vital Signs Vital Signs - First Documented 05/12/21 00:55 Temp 36.2 Pulse 76 Resp 20 B/P (MAP) 160/90 (113) Pulse Ox 94 O2 Delivery Room Air Capillary Refill : Height, Weight, BMI Height: '" Weight: lbs. oz. kg; 28.29 BMI Method: General Appearance: WD/WN, mild distress Cardiovascular: normal peripheral pulses, regular rate, rhythm Respiratory: chest non-tender, lungs clear, normal breath sounds Gastrointestinal: normal bowel sounds, soft, no pulsatile mass; No guarding, No rebound; tenderness (Mild lower abdominal tenderness. No guarding or rebound) Rectal: deferred Extremities: normal range of motion, non-tender, normal capillary refill Neurologic/Psychiatric: alert, oriented x 3 Skin: normal color, warm/dry Progress/Results/Core Measures Suspected Sepsis SIRS Temperature: Pulse: Respiratory Rate: Blood Pressure / Mean: Results/Orders Lab Results Laboratory Tests Test 05/12/21 01:24 Range/Units Urine Color BROWN H Urine Clarity CLOUDY Urine pH 5.0 5-9 Urine Specific Nelson 1.025 H 1.016-1.022 Urine Protein 2+ H NEGATIVE Urine Glucose (UA) TRACE H NEGATIVE Urine Ketones TRACE H NEGATIVE Urine Nitrite POSITIVE H NEGATIVE Urine Bilirubin 1+ H NEGATIVE Urine Urobilinogen 2.0 < = 1.0 MG/DL Urine Leukocyte Esterase TRACE H NEGATIVE Urine RBC (Auto) 3+ H NEGATIVE Urine RBC TNTC H /HPF Urine WBC RARE /HPF Urine Squamous Epithelial Cells 0-2 /HPF Urine Crystals PRESENT H /LPF Urine Amorphous Sediment FEW KIM URATES H /LPF Urine Bacteria TRACE /HPF Urine Casts NONE /LPF Urine Mucus NEGATIVE /LPF Urine Culture Indicated YES My Orders Orders - KERRIE ROQUE MD Bladder Scan (05/12/21 01:07) Rosen Cath (05/12/21 01:07) Ua Culture If Indicated (05/12/21 01:07) Urine Culture (05/12/21 01:24) Vital Signs/I&O 05/12/21 05/12/21 00:55 02:48 Temp 36.2 Pulse 76 71 Resp 20 18 B/P (MAP) 160/90 (113) 151/81 Pulse Ox 94 96 O2 Delivery Room Air Room Air Capillary Refill : Progress Note : Progress Note Bladder scan demonstrated more than 350 mL of urine present. Rosen was placed and urinalysis sent. Patient had resolution of his discomfort with pressure with placement of Rosen catheter. Urinalysis did demonstrate nitrates and multiple abnormalities on the urinalysis to indicate infection. Patient is already on antibiotics from procedure earlier today. Counseled to continue on antibiotic and call Dr. Jay's office for follow-up directions and about catheter. Departure Impression Primary Impression: Acute urinary retention Additional Impression: Cystitis with hematuria Disposition: HOME, SELF-CARE Condition: Stable Departure-Patient Inst. Decision time for Depature: 02:34 Referrals: DEANNA VARGAS MD (PCP) Primary Care Physician KATHLEEN JAY MD Patient Instructions: Urinary Tract Infection, Adult ED, How to Care for Your Rosen Catheter, Male Add. Discharge Instructions: Continue on your medicine as set up by Dr. Jay. If you need a new antibiotic we will know from the urine culture results that will be back in 3-4 days. drink plenty of water and stay well hydrated. Call Dr. Jay's office today to let him know you had to have a catheter placed for urinary retention and see when he wants to see you for removing the cathet er. All discharge instructions reviewed with patient and/or family. Voiced understanding. KERRIE ROQUE MD May 12, 2021 01:37
[2021-05-12 01:42] LABS: CLARITY,URINE CLOUDY; COLOR,URINE BROWN; GLUCOSE, URINE (UA) TRACE (NEGATIVE); KETONES,URINE TRACE (NEGATIVE); LEUKOCYTE ESTERASE ,URINE TRACE (NEGATIVE); NITRITE,URINE POSITIVE (NEGATIVE); PROTEIN,URINE 2+ (NEGATIVE)
[2021-05-12 01:54] LABS: RBC,URINE TNTC /HPF
[2021-05-12 01:55] LABS: AMORPHOUS SEDIMENT,UR FEW AMOR URATES /LPF; BACTERIA,URINE TRACE /HPF; BILIRUBIN,URINE 1+ (NEGATIVE); SQUAMOUS EPITHELIAL CELL,UR 0-2 /HPF; WBC,URINE RARE /HPF
[2021-05-12 02:48] VITALS: BP 151/81
--- NOTE | 2021-05-12 09:32 | Anesthesia-General Post-Op ---
General Patient Condition Mental Status/LOC: Same as Preop Cardiovascular: Satisfactory Nausea/Vomiting: Absent Respiratory: Satisfactory Pain: Controlled Complications: Absent Post Op Complications Complications None Follow Up Care/Instructions Patient Instructions None needed. Anesthesia/Patient Condition Patient Condition Patient is doing well, no complaints, stable vital signs, no apparent adverse anesthesia problems. No complications reported per nursing. JOSELINE LUNDBERG CRNA May 12, 2021 09:32
== END 2021-05-12 02:39 | disposition home or self-care (01) ==
LOC: EDUNIT# 00:50 → ER FS 00:52
DX: R33.9 Retention of urine, unspecified (principal); N30.91 Cystitis, unspecified with hematuria; J45.909 Unspecified asthma, uncomplicated; I10 Essential (primary) hypertension; I25.2 Old myocardial infarction; E78.00 Pure hypercholesterolemia, unspecified; E11.9 Type 2 diabetes mellitus without complications; F17.290 Nicotine dependence, other tobacco product, uncomplicated; Z79.84 Long term (current) use of oral hypoglycemic drugs; Z79.899 Other long term (current) drug therapy
CPT/HCPCS: 51702; 81000; 87088

== ENCOUNTER 2021-05-23 13:47 | Outpatient (CLI) | payer MEDICARE, OTHER ==
[~2021-05-23] VITALS: Ht 188 cm; Wt 100.0 kg
[2021-05-24] MEDS ORDERED: TMSL.4C PO (11:23)
[2021-05-24] MEDS ORDERED: KETO10TA PO (11:23)
[2021-05-24] MEDS ORDERED: NITR-65 PO (11:23)
== END 2021-05-23 15:43 | disposition home or self-care (01) ==
LOC: PREOP 13:47
PROVIDERS: ATTEND Urology
DX: Z01.818 Encounter for other preprocedural examination (principal)

== ENCOUNTER 2021-05-24 06:42 | Day surgery (SDC) | payer MEDICARE, OTHER ==
[2021-05-24] VITALS (11 sets, daily range): BP systolic 109–154; BP diastolic 72–95
[~2021-05-24] VITALS: Ht 188 cm; Wt 100.0 kg
--- NOTE | 2021-05-24 07:06 | Progress Note-Pre Operative ---
Pre-Operative Progress Note H&P Reviewed The H&P was reviewed, patient examined and no changes noted. Date Seen by Provider: May 24, 2021 Time Seen by Provider: 07:06 Date H&P Reviewed: May 24, 2021 Time H&P Reviewed: 07:06 Pre-Operative Diagnosis: RT URETERAL STONE KATHLEEN JAY MD May 24, 2021 07:06
[2021-05-24] MEDS ORDERED: cefTRIAXone 1 GM PRE-MIX 50 ML IV ONE ×3 (07:15→09:00)
--- NOTE | 2021-05-24 07:55 | Diagnostic Imaging Report ---
History: Lithotripsy, preop TECHNIQUE: Frontal view of the abdomen COMPARISON: 05/23/2021 FINDINGS: There is a 9 mm calculus along the expected course of the right ureter at the L3-L4 vertebral level. No other renal or ureteral calculi are seen. There is a large calcification in the right pelvis measuring 2.3 cm in size. Advanced degenerative changes are seen in the lumbar spine. There is transitional anatomy at the lumbosacral junction. IMPRESSION: 1. Stable 9 mm calculus in the region of the right ureter. 2. Large irregular calcification in the right pelvis, likely in the bladder. Dictated by: Dictated on workstation # [id number]
[2021-05-24] MEDS ORDERED: LACTATED RINGERS 1,000 ML IV PRN (08:15)
[2021-05-24] MEDS ORDERED: CLINDAMYCIN 600 MG/50 ML IVPB 50 ML IV ONE (08:30)
[2021-05-24] MEDS ORDERED: fentaNYL INJ 100 MCG/2 ML AMP ONE (09:16)
--- NOTE | 2021-05-24 09:26 | Progress Note-Post Operative ---
Post-Operative Progess Note Surgeon (s)/Clay Hoister (s) Surgeon KATHLEEN JAY MD Clay Hoister: NONE Pre-Operative Diagnosis RT URETERAL STONE Post-Operative Diagnosis SAME Procedure & Operative Findings Date of Procedure 05/24/21 Procedure Performed/Findings RT ESWL Anesthesia Type GENERAL Estimated Blood Loss Estimated blood loss (mL): NONE Specimens/Packing Specimens Removed NONE Packing: NONE KATHLEEN JAY MD May 24, 2021 09:26
--- NOTE | 2021-05-24 09:28 | Discharge Inst-Urology ---
Discharge Inst-Urology Reconcile Patient Problems Problems Reviewed?: Yes Final Diagnosis RT URETERAL STONE Patient Instructions/Follow Up Plan/Assessment/Instructions Please make appointment to been seen in office Wednesday 06/06, KUB prior to it. KUB on way home Post ESWL instructions Increase oral fluids for 48 hours and then as needed. Diet and Activity as tolerated. If questions or concerns contact your physician Or seek help at emergency department. KATHLEEN JAY MD May 24, 2021 09:28
[2021-05-24] MEDS ORDERED: SEVOFLURANE (ULTANE) 15 ML INHAL SOLN ONE (10:04)
[2021-05-24] MEDS ORDERED: proPOfol 200 MG/20 ML (DIPRIVAN) VIAL IV ONE (10:04)
[2021-05-24] MEDS ORDERED: ONDANSETRON 4 MG/2 ML (SDV) Z0FRAN ONE (10:04)
[2021-05-24] MEDS ORDERED: LIDOCAINE PF 2% 5 ML (XYLOCAINE) VIAL ONE (10:04)
--- NOTE | 2021-05-24 10:13 | Anesthesia-General Post-Op ---
General Patient Condition Mental Status/LOC: Same as Preop Cardiovascular: Satisfactory Nausea/Vomiting: Absent Respiratory: Satisfactory Pain: Controlled Complications: Absent Post Op Complications Complications None Follow Up Care/Instructions Patient Instructions None needed. Anesthesia/Patient Condition Patient Condition Patient is doing well, no complaints, stable vital signs, no apparent adverse anesthesia problems. No complications reported per nursing. BRIGITTE MARKS CRNA May 24, 2021 10:13
[2021-05-24] MEDS ORDERED: fentaNYL INJ 100 MCG/2 ML AMP IVP ONE (10:15)
[2021-05-24] MEDS ORDERED: ONDANSETRON 4 MG/2 ML (SDV) Z0FRAN IVP PRN (10:15)
[2021-05-24] MEDS ORDERED: morphine INJ 10 MG/ML 1ML (SYR OR VIAL) IVP ONE (10:15)
[2021-05-24] MEDS ORDERED: NITR-65 PO (11:23)
[2021-05-24] MEDS ORDERED: TMSL.4C PO (11:23)
[2021-05-24] MEDS ORDERED: KETO10TA PO (11:23)
--- NOTE | 2021-05-24 11:48 | Diagnostic Imaging Report ---
INDICATION: Post ESWL FINDINGS: There are vascular calcifications. There are calcifications projecting to the right of the L3-L4 vertebral body endplates unchanged from prior and unchanged from CT of 05/03/2021. Large vianney configured bladder calculus unchanged. There is lumbar spondylosis. IMPRESSION: Right ureteral calculus at the L3-L4 disc space level unchanged. Vianney configured large bladder stone redemonstrated. No significant change. Dictated by: Dictated on workstation # [id number]
--- NOTE | 2021-05-24 12:22 | OPERATIVE REPORT ---
DATE OF SERVICE: 05/24/2021 PREOPERATIVE DIAGNOSIS: Right ureteral stone. POSTOPERATIVE DIAGNOSIS: Right ureteral stone. OPERATION PERFORMED: Right ESWL. SURGEON: Dc Jay MD ANESTHESIA: General. COMPLICATIONS: None. DESCRIPTION OF PROCEDURE: Under satisfactory general anesthesia, the patient in supine position on the ESWL table, the right ureteral stone was localized. Shocks were delivered at kV of 6, a total of 3000 shocks completely fragmented the stone that was hardly visualized. The patient received 40 mg of Lasix and 30 mg of Toradol IV at the end of the procedure. He tolerated the procedure and anesthesia well and was sent to recovery room in stable condition. Job ID: [id number] DocumentID: [id number] Dictated Date: 05/24/2021 09:59:09 Lining Finisher Date: 05/24/2021 12:21:30 Dictated By: DC JAY MD
== END 2021-05-24 12:01 | disposition home or self-care (01) ==
LOC: SDC 06:42
PROVIDERS: ATTEND Urology
DX: N20.1 Calculus of ureter (principal); N21.0 Calculus in bladder; E11.9 Type 2 diabetes mellitus without complications; I10 Essential (primary) hypertension; I25.10 Atherosclerotic heart disease of native coronary artery without angina pectoris; E78.5 Hyperlipidemia, unspecified; Z79.899 Other long term (current) drug therapy; Z79.84 Long term (current) use of oral hypoglycemic drugs; Z79.82 Long term (current) use of aspirin
CPT/HCPCS: 74018; 82947; 87081; 93005

== ENCOUNTER → 2021-06-06 | Outpatient (CLI) | payer MEDICARE, OTHER ==
[~2021-06-06] MED LIST changes: +CYCL10TA25 PO; +HYDR12.56 PO; +NITR-65 PO
--- NOTE | 2021-06-06 15:42 | Diagnostic Imaging Report ---
INDICATION: History of right ureteral calculus. COMPARISON: 05/24/2021. FINDINGS: Two supine radiographic views of the abdomen were obtained. Extraosseous calcification projecting lateral to the L3-L4 intervertebral disc space on the right is now absent. Bulky bladder calculus persists. No unexpected radiopaque foreign bodies are seen. Small bowel loops are nondistended. Large amount of colonic air and stool is noted. Osseous structures show age-related degenerative changes. IMPRESSION: 1. Previously described distal right ureteral calculus is now absent, consistent with interval clearing. 2. Nonobstructed small bowel gas pattern. 3. Moderate colonic air and stool. Please correlate for constipation. Dictated by: Dictated on workstation # [id number]
== END ==
LOC: RAD 14:08
PROVIDERS: ATTEND Urology
DX: N20.1 Calculus of ureter (principal)
CPT/HCPCS: 74018

== ENCOUNTER 2021-06-07 05:54 | Day surgery (SDC) | payer MEDICARE, OTHER ==
[2021-06-07] VITALS (10 sets, daily range): BP systolic 125–151; BP diastolic 71–92
[~2021-06-07] VITALS: Ht 188 cm; Wt 102.3 kg
[~2021-06-07 05:54] MED LIST changes: -CYCL10TA25 PO; -HYDR12.56 PO
[2021-06-07] MEDS ORDERED: cefTRIAXone 1 GM PRE-MIX 50 ML IV ONE (06:15)
--- NOTE | 2021-06-07 07:03 | Progress Note-Pre Operative ---
Pre-Operative Progress Note H&P Reviewed The H&P was reviewed, patient examined and no changes noted. Date Seen by Provider: Jun 07, 2021 Time Seen by Provider: 07:03 Date H&P Reviewed: Jun 07, 2021 Time H&P Reviewed: 07:03 Pre-Operative Diagnosis: BLADDER STONE KATHLEEN JAY MD Jun 07, 2021 07:03
--- NOTE | 2021-06-07 07:09 | Diagnostic Imaging Report ---
HISTORY: Lithotripsy COMPARISON: 06/06/2021 TECHNIQUE: Frontal view the abdomen FINDINGS: No ureteral or renal calculi are appreciated. There is a spiculated calcification in the right pelvis which measures about 2.5 cm, in the bladder. There are degenerative changes in the spine. No distended loops of bowel are seen. There is no large collection of free air. IMPRESSION: 1. No renal or ureteral calculi are seen. 2. Stable bladder calculus. Dictated by: Dictated on workstation # [id number]
[2021-06-07] MEDS: LACTATED RINGERS 1,000 ML IV PRN ×2 (07:21→09:54)
[2021-06-07] MEDS ORDERED: ONDANSETRON 4 MG/2 ML (SDV) Z0FRAN ONE (08:37)
[2021-06-07] MEDS ORDERED: LIDOCAINE PF 2% 5 ML (XYLOCAINE) VIAL ONE (08:37)
[2021-06-07] MEDS ORDERED: proPOfol 200 MG/20 ML (DIPRIVAN) VIAL IV ONE (08:37)
[2021-06-07] MEDS ORDERED: ASPI-808 PO (08:37)
[2021-06-07] MEDS ORDERED: fentaNYL INJ 100 MCG/2 ML AMP ONE (08:37)
[2021-06-07] MEDS ORDERED: SEVOFLURANE (ULTANE) 15 ML INHAL SOLN ONE ×2 (08:37→10:27)
[2021-06-07] MEDS ORDERED: MIDAZOLAM 2 MG/2 ML (VERSED) VIAL ONE (08:37)
[2021-06-07] MEDS ORDERED: HYDR12.56 PO (08:37)
[2021-06-07] MEDS ORDERED: CYCL10TA25 PO (08:39)
--- NOTE | 2021-06-07 09:03 | Progress Note-Post Operative ---
Post-Operative Progess Note Surgeon (s)/Auto Glass Worker (s) Surgeon KATHLEEN JAY MD Auto Glass Worker: NONE Pre-Operative Diagnosis BLADDER STONE Post-Operative Diagnosis SAME Procedure & Operative Findings Date of Procedure 06/07/21 Procedure Performed/Findings CYSTOLITHOTRIPSY Anesthesia Type GENERAL Estimated Blood Loss Estimated blood loss (mL): NEGLIGIBLE Specimens/Packing Specimens Removed BLADDER STONE FRAGMENTS Packing: NONE KATHLEEN JAY MD Jun 07, 2021 09:03
--- NOTE | 2021-06-07 09:04 | Discharge Inst-Urology ---
Discharge Inst-Urology Reconcile Patient Problems Problems Reviewed?: Yes Final Diagnosis BLADDER STONE Patient Instructions/Follow Up Plan/Assessment/Instructions Please make appointment to been seen in office in 2 weeks. Off ASA Increase oral fluids for 48 hours and then as needed. Diet and Activity as tolerated. If questions or concerns contact your physician Or seek help at emergency department. KATHLEEN JAY MD Jun 07, 2021 09:04
[2021-06-07] MEDS ORDERED: ONDANSETRON 4 MG/2 ML (SDV) Z0FRAN IVP PRN (10:45)
[2021-06-07] MEDS ORDERED: morphine INJ 10 MG/ML 1ML (SYR OR VIAL) IVP ONE (10:45)
[2021-06-07] MEDS ORDERED: SULF1TAB38 PO (11:39)
[2021-06-07] MEDS ORDERED: KETO10TA PO (11:39)
[2021-06-07] MEDS ORDERED: PHEN-640 PO (11:39)
--- NOTE | 2021-06-07 12:00 | Anesthesia-General Post-Op ---
General Patient Condition Mental Status/LOC: Same as Preop Cardiovascular: Satisfactory Nausea/Vomiting: Absent Respiratory: Satisfactory Pain: Controlled Complications: Absent Post Op Complications Complications None Follow Up Care/Instructions Patient Instructions None needed. Anesthesia/Patient Condition Patient Condition Patient is doing well, no complaints, stable vital signs, no apparent adverse anesthesia problems. ELIANE LYONS DO Jun 07, 2021 12:00
--- NOTE | 2021-06-07 17:50 | OPERATIVE REPORT ---
DATE OF SERVICE: 06/07/2021 PREOPERATIVE DIAGNOSIS: Bladder stone. POSTOPERATIVE DIAGNOSIS: Bladder stone. OPERATION PERFORMED: Cystolithotripsy. SURGEON: Dc Jay MD ANESTHESIA: General. COMPLICATIONS: None. DESCRIPTION OF PROCEDURE: Under satisfactory general anesthesia, the patient in lithotomy position, genitalia were prepped and draped in the usual sterile fashion. Cystoscope was introduced under vision. The anterior urethra was normal. The prostate revealed enlargement of the lateral lobe meeting in midline causing complete bladder neck obstruction. Bladder was entered, revealed a large stellate type stone and 4+ trabeculation with cellules. I went ahead and fragmented the stone using the lithoclast into small fragments that were all irrigated and the bladder was free of fragments completely. Ureteric orifices were intact with clear effluxes. The bladder was evacuated. Cystoscope was removed. The patient tolerated the procedure and anesthesia well and was sent to recovery room in stable condition. Job ID: [id number] DocumentID: [id number] Dictated Date: 06/07/2021 10:37:12 Supply Teacher Date: 06/07/2021 17:49:59 Dictated By: DC JAY MD [facility]
== END 2021-06-07 12:40 | disposition home or self-care (01) ==
LOC: SDC 05:54
PROVIDERS: ATTEND Urology
DX: N21.0 Calculus in bladder (principal); N40.1 Benign prostatic hyperplasia with lower urinary tract symptoms; N13.8 Other obstructive and reflux uropathy; I10 Essential (primary) hypertension; E11.9 Type 2 diabetes mellitus without complications; I25.10 Atherosclerotic heart disease of native coronary artery without angina pectoris; F17.220 Nicotine dependence, chewing tobacco, uncomplicated; Z95.1 Presence of aortocoronary bypass graft; Z95.5 Presence of coronary angioplasty implant and graft; Z79.82 Long term (current) use of aspirin; Z79.899 Other long term (current) drug therapy; Z11.2 Encounter for screening for other bacterial diseases
CPT/HCPCS: 74018; 82947; 87081; 88300